=== PATIENT | female | born 1995 | race Two or more races ===

== ENCOUNTER 2025-01-28 21:18 | Emergency (ER) | payer OTHER ==
[~2025-01-28] VITALS: Ht 149.9 cm; Wt 44.5 kg
[2025-01-28 21:23] VITALS: BP 104/66; O2SAT 99
[2025-01-28] MEDS ORDERED: PRENATABS RX T1 EACH (21:23)
[2025-01-28] MEDS ORDERED: FAMOTIDINE/PF 20 MG in 0.9 % SODIUM CHLORIDE 8 ML IV PUSH STA (21:26)
[2025-01-28] MEDS ORDERED: 0.9 % SODIUM CHLORIDE 1,000 ML IV SCH (21:30)
[2025-01-28] MEDS ORDERED: METOCLOPRAMIDE HCL 10 MG in DEXTROSE 5 % IN WATER 50 ML IV ONE (21:30)
[2025-01-28] MEDS ORDERED: BUTALB/ACETAMINOPHEN/CAFFEINE 1 TAB TABLET PO ONE ×2 (21:30→21:57)
[2025-01-28] MEDS ORDERED: FAMOTIDINE/PF 20 MG/2 ML VIAL ONE (21:57)
[2025-01-28] MEDS ORDERED: METOCLOPRAMIDE HCL 5 MG/ML VIAL ONE (21:57)
[2025-01-28] MEDS ORDERED: ONDANSETRON HCL 2 MG/ML VIAL ONE (22:02)
[2025-01-28 23:21] LABS: BASO % 0.2 % (0.1-1.2); EOS # 0.04 (0.04-0.54); EOS % 0.4 % (0.7-7.0); HEMATOCRIT 35.6 % (34.1-44.9); HEMOGLOBIN 12.1 g/dL (11.2-15.7); LYMPH # 1.61 (1.18-3.74); LYMPH % 15.6 % (19.3-53.1); MEAN CORPUSCULAR HEMOGLOBIN 29.2 pg (25.6-32.2); MONO # 0.79 (0.24-0.82); MONO % 7.6 % (4.7-12.5); NEUT # 7.84 (1.56-6.13); NEUT % 75.9 % (34.0-71.1); PLATELET COUNT 305 K/uL (163-369); RED BLOOD COUNT 4.14 M/uL (3.93-5.22)
[2025-01-29] LABS: INFLUENZA A AG NEGATIVE (NEGATIVE)
[2025-01-29 00:04] LABS: COVID-19 AG NEGATIVE (NEGATIVE)
[2025-01-29] MEDS ORDERED: ONDANSETRON ODT8 MG PO (00:12)
[2025-01-29] MEDS ORDERED: PEPCID AC20 MG PO (00:12)
== END 2025-01-29 00:26 | disposition home or self-care (01) ==
LOC: ER 22:52
PROVIDERS: General Practice
DX: O21.0 Mild hyperemesis gravidarum (principal); Z3A.15 15 weeks gestation of pregnancy; Z20.822 Contact with and (suspected) exposure to COVID-19

== ENCOUNTER → 2025-02-14 | Emergency (ER) | payer OTHER ==
[~2025-02-14] VITALS: Ht 167.6 cm; Wt 63.5 kg
[~2025-02-14] MED LIST: GUAIFENESIN 200 MG/10 ML BLIST.PACK PO ONE; GUAIFENESIN/DEXTROMETHORPHAN 100MG/10ML BLIST.PACK PO ONE; ONDANSETRON ODT8 MG PO; PEPCID AC20 MG PO; PRENATABS RX T1 EACH; TUSSIN DM LIQU118 ML PO; ZITHROMAX500 MG PO
[2025-02-14 16:28] LABS: BASO % 0.3 % (0.1-1.2); EOS # 0.08 (0.04-0.54); EOS % 0.5 % (0.7-7.0); HEMATOCRIT 35.3 % (34.1-44.9); LYMPH # 1.03 (1.18-3.74); LYMPH % 6.6 % (19.3-53.1); MEAN CORPUSCULAR HEMOGLOBIN 29.8 pg (25.6-32.2); MONO # 0.84 (0.24-0.82); MONO % 5.4 % (4.7-12.5); NEUT # 13.42 (1.56-6.13); NEUT % 86.7 % (34.0-71.1); PLATELET COUNT 284 K/uL (163-369); RED BLOOD COUNT 4.03 M/uL (3.93-5.22)
[2025-02-14 16:45] LABS: COVID-19 AG NEGATIVE (NEGATIVE); INFLUENZA A AG NEGATIVE (NEGATIVE); INFLUENZA B AG NEGATIVE (NEGATIVE)
== END | disposition home or self-care (01) ==
LOC: ER 11:36
DX: O98.512 Other viral diseases complicating pregnancy, second trimester (principal); B33.8 Other specified viral diseases; Z3A.17 17 weeks gestation of pregnancy; J00 Acute nasopharyngitis [common cold]; Z20.822 Contact with and (suspected) exposure to COVID-19

== ENCOUNTER 2025-02-25 09:19 | Outpatient (CLI) | payer OTHER ==
[~2025-02-25 09:19] MED LIST changes: -GUAIFENESIN 200 MG/10 ML BLIST.PACK PO ONE; -GUAIFENESIN/DEXTROMETHORPHAN 100MG/10ML BLIST.PACK PO ONE
== END 2025-02-25 09:20 | disposition home or self-care (01) ==
LOC: PRENATAL 09:19
PROVIDERS: ATTEND Obstetrics & Gynecology Maternal & Fetal Medicine
DX: O44.00 Complete placenta previa NOS or without hemorrhage, unspecified trimester (principal); Z14.8 Genetic carrier of other disease; O09.819 Supervision of pregnancy resulting from assisted reproductive technology, unspecified trimester; Z3A.18 18 weeks gestation of pregnancy

== ENCOUNTER 2025-03-04 08:38 | Emergency (ER) | payer OTHER ==
[~2025-03-04] VITALS: Ht 149.9 cm; Wt 45.4 kg
[2025-03-04] MEDS ORDERED: COMPLETENATE T1 EACH PO (09:03)
[2025-03-04 09:07] VITALS: O2SAT 97
[2025-03-04 10:02] LABS: BASO % 0.4 % (0.1-1.2); EOS # 0.09 (0.04-0.54); EOS % 1.2 % (0.7-7.0); HEMATOCRIT 31.4 % (34.1-44.9); HEMOGLOBIN 10.6 g/dL (11.2-15.7); LYMPH # 0.85 (1.18-3.74); LYMPH % 11.3 % (19.3-53.1); MEAN CORPUSCULAR HEMOGLOBIN 29.7 pg (25.6-32.2); MONO # 0.71 (0.24-0.82); MONO % 9.4 % (4.7-12.5); NEUT % 77.2 % (34.0-71.1); PLATELET COUNT 281 K/uL (163-369); RED BLOOD COUNT 3.57 M/uL (3.93-5.22); RED CELL DISTRIBUTION WIDTH 13.8 % (11.6-14.4)
[2025-03-04 11:02] LABS: COVID-19 AG NEGATIVE (NEGATIVE)
[2025-03-04 11:06] LABS: INFLUENZA A AG NEGATIVE (NEGATIVE); INFLUENZA B AG NEGATIVE (NEGATIVE)
[2025-03-04 11:21] VITALS: BP 95/60
== END 2025-03-04 11:23 | disposition home or self-care (01) ==
LOC: ER 08:52
DX: J06.9 Acute upper respiratory infection, unspecified (principal); Z20.822 Contact with and (suspected) exposure to COVID-19

== ENCOUNTER 2025-04-29 08:56 | Outpatient (CLI) | payer OTHER ==
[~2025-04-29 08:56] MED LIST changes: +COMPLETENATE T1 EACH PO; +ONDANSETRON ODT4 MG PO; +PEPCID40 MG PO; +ZYRTEC10 M3 PO
== END 2025-04-29 08:58 | disposition home or self-care (01) ==
LOC: PRENATAL 08:56
PROVIDERS: ATTEND Obstetrics & Gynecology Maternal & Fetal Medicine
DX: O26.849 Uterine size-date discrepancy, unspecified trimester (principal); O43.90 Unspecified placental disorder, unspecified trimester; Z14.8 Genetic carrier of other disease; Z3A.27 27 weeks gestation of pregnancy

== ENCOUNTER 2025-05-14 21:29 | Inpatient (IN) | payer OTHER ==
[~2025-05-14] VITALS: Ht 149.9 cm; Wt 47.6 kg
[~2025-05-14 21:29] MED LIST changes: +BETAMETHASONE ACETATE,SOD PHOS 30 MG/5 ML ML ONE; +CEFAZOLIN SODIUM 1,000 MG VIAL ONE
[2025-05-14 21:50] VITALS: BP 102/66
[2025-05-14] MEDS ORDERED: BETAMETHASONE ACETATE,SOD PHOS 30 MG/5 ML ML IM STA (22:20)
[2025-05-14] MEDS ORDERED: RINGERS SOLUTION,LACTATED 1,000 ML IV SCH (22:30)
[2025-05-14] MEDS ORDERED: NIFEDIPINE 10 MG CAPSULE PO PRN (22:30)
[2025-05-14] MEDS ORDERED: PROMETRIUM200 MG PO (22:47)
[2025-05-14 23:07] VITALS: BP 99/52
[2025-05-14 23:17] LABS: BASO % 0.3 % (0.1-1.2); EOS # 0.05 (0.04-0.54); EOS % 0.4 % (0.7-7.0); LYMPH # 1.95 (1.18-3.74); LYMPH % 15.9 % (19.3-53.1); MEAN PLATELET VOLUME 10.10 fl (9.4-12.4); MONO # 0.87 (0.24-0.82); MONO % 7.1 % (4.7-12.5); NEUT # 9.22 (1.56-6.13); NEUT % 75.4 % (34.0-71.1); RED CELL DISTRIBUTION WIDTH 12.6 % (11.6-14.4)
[2025-05-14 23:20] LABS: URINE APPEARANCE Clear; URINE BILIRRUBIN Negative (NEGATIVE); URINE BLOOD Negative; URINE COLOR Dark Yellow; URINE GLUCOSE Negative (NEGATIVE); URINE LEUKOCYTE Small; URINE NITRATE Negative; URINE PROTEIN 30 (NEGATIVE); URINE UROBILINOGEN 1.0 E.U./dl
[2025-05-14 23:23] LABS: URINE BACTERIA 1276.8 uL (0.0-1933); URINE EPITHELIAL CELLS 88.7 uL (0.0-38.8); URINE RBC 5.5 uL (0.0-20.8); URINE WBC 88.4 uL (0.0-23.2)
[2025-05-14 23:41] LABS: INR 0.94
[2025-05-14 23:48] LABS: URINE CAST 0.43 uL (0.0-1.40); URINE KETONE 80 (NEGATIVE); URINE MUCUS HEAVY
[2025-05-15] VITALS (7 sets, daily range): BP systolic 91–103; BP diastolic 52–68; O2SAT 98–100
[2025-05-15] MEDS ORDERED: CEFAZOLIN SODIUM 1,000 MG VIAL IV SCH
[2025-05-15] MEDS ORDERED: NIFEDIPINE 30 MG TAB.SA.OSM PO SCH (06:19)
[2025-05-15] MEDS ORDERED: PNV,CALCIUM 72/IRON/FOLIC ACID 1 TAB TABLET PO SCH (09:00)
[2025-05-15] MEDS ORDERED: MAGNESIUM SULFATE IN WATER 4 GM/100 ML PIGGYBACK IV ONE (09:00)
[2025-05-15] MEDS ORDERED: MAGNESIUM SULFATE IN WATER 500 ML IV SCH (09:00)
[2025-05-15] MEDS ORDERED: SOD FERRIC GLUC COMPLX/SUCROSE 62.5 MG/5 ML AMPUL IV SCH (09:00)
[2025-05-15] MEDS ORDERED: BETAMETHASONE ACETATE,SOD PHOS 30 MG/5 ML ML ONE (22:09)
[2025-05-15] MEDS ORDERED: BETAMETHASONE ACETATE,SOD PHOS 30 MG/5 ML ML IM ONE (22:30)
[2025-05-16 03:30] VITALS: BP 91/50
[2025-05-16 07:06] VITALS: BP 94/45
[2025-05-16 11:22] VITALS: BP 106/65
[2025-05-16 16:32] VITALS: BP 92/58; O2SAT 99
[2025-05-16 21:11] VITALS: BP 97/60
[2025-05-16 21:14] VITALS: BP 97/60
[2025-05-17 00:27] VITALS: BP 95/50
[2025-05-17 08:36] VITALS: BP 104/64
[2025-05-17 16:18] VITALS: BP 101/64; O2SAT 98
[2025-05-18 00:16] VITALS: BP 100/58
[2025-05-18 08:08] VITALS: BP 93/58
[2025-05-18] MEDS ORDERED: MISOPROSTOL 25 MCG/4 ML GEL.W.APPL VAG STA (08:20)
[2025-05-18 16:35] VITALS: BP 107/67
[2025-05-19] VITALS: BP 92/53
[2025-05-19] MEDS ORDERED: CITRIC ACID/SODIUM CITRATE 30 ML BLIST.PACK PO NR (07:00)
[2025-05-19 08:33] VITALS: BP 111/68; O2SAT 99
[2025-05-19 12:23] VITALS: BP 120/61; O2SAT 99
[2025-05-19] MEDS ORDERED: MAG HYDROX/ALUMINUM HYD/SIMETH 30 ML BLIST.PACK PO NR (17:00)
[2025-05-19 17:10] VITALS: BP 101/64
[2025-05-19 20:22] VITALS: BP 103/62
[2025-05-20] VITALS: BP 107/65
[2025-05-20 08:14] VITALS: BP 105/64
[2025-05-20 13:47] LABS: BASO % 0.3 % (0.1-1.2); EOS # 0.20 (0.04-0.54); EOS % 1.4 % (0.7-7.0); LYMPH # 1.61 (1.18-3.74); LYMPH % 11.1 % (19.3-53.1); MEAN PLATELET VOLUME 10.20 fl (9.4-12.4); MONO # 0.94 (0.24-0.82); MONO % 6.5 % (4.7-12.5); NEUT # 11.12 (1.56-6.13); NEUT % 76.5 % (34.0-71.1); RED CELL DISTRIBUTION WIDTH 13.3 % (11.6-14.4)
[2025-05-20 19:20] VITALS: BP 106/55
[2025-05-21 00:36] VITALS: BP 102/65
[2025-05-21 08:54] VITALS: BP 100/64
[2025-05-21 17:33] VITALS: BP 100/65
[2025-05-21 20:18] VITALS: BP 120/70
[2025-05-22 08:00] VITALS: BP 103/62
[2025-05-22 12:00] VITALS: BP 100/65
[2025-05-22 16:46] VITALS: BP 95/55
[2025-05-23] VITALS: BP 108/72
[2025-05-23 08:00] VITALS: BP 96/50
[2025-05-23 16:00] VITALS: BP 102/66
[2025-05-23 20:00] VITALS: BP 106/65
[2025-05-24] VITALS: BP 96/52
[2025-05-24 04:00] VITALS: BP 95/60
[2025-05-24 08:00] VITALS: BP 99/62
[2025-05-24 16:44] VITALS: BP 112/76
[2025-05-25] VITALS: BP 102/76
[2025-05-25 04:00] VITALS: BP 97/60
[2025-05-25 07:55] VITALS: BP 96/60
[2025-05-25 13:02] VITALS: BP 100/62
[2025-05-25 15:50] VITALS: BP 101/66
[2025-05-26] VITALS: BP 106/69
[2025-05-26 08:04] VITALS: BP 95/62
== END 2025-05-26 10:02 | disposition home or self-care (01) | DRG 833 ==
LOC: LDR 21:29 → OB/GYN 05-16 10:28
PROVIDERS: Obstetrics & Gynecology Maternal & Fetal Medicine; ADMIT Obstetrics & Gynecology; ATTEND Obstetrics & Gynecology
PROC: 4A1HXCZ Monitoring of Products of Conception, Cardiac Rate, External Approach (ICD-10-PCS; principal; 2025-05-14)
PROC: BY4FZZZ Ultrasonography of Third Trimester, Single Fetus (ICD-10-PCS; 2025-05-15)
PROC: BU4CZZZ Ultrasonography of Uterus and Ovaries (ICD-10-PCS; 2025-05-15)
PROC: BY4FZZZ Ultrasonography of Third Trimester, Single Fetus (ICD-10-PCS; 2025-05-25)
PROC: BU4CZZZ Ultrasonography of Uterus and Ovaries (ICD-10-PCS; 2025-05-25)
DX: O60.03 Preterm labor without delivery, third trimester (principal); O26.893 Other specified pregnancy related conditions, third trimester; R10.2 Pelvic and perineal pain; O36.8130 Decreased fetal movements, third trimester, not applicable or unspecified; O26.843 Uterine size-date discrepancy, third trimester; O43.93 Unspecified placental disorder, third trimester; O26.853 Spotting complicating pregnancy, third trimester; Z3A.30 30 weeks gestation of pregnancy; Z14.8 Genetic carrier of other disease

== ENCOUNTER → 2025-06-08 10:32 | Outpatient (CLI) | payer OTHER ==
[~2025-06-08 10:32] MED LIST changes: -BETAMETHASONE ACETATE,SOD PHOS 30 MG/5 ML ML ONE; -CEFAZOLIN SODIUM 1,000 MG VIAL ONE; +PROMETRIUM200 MG PO
== END | disposition home or self-care (01) ==
LOC: PRENATAL 10:32
PROVIDERS: ATTEND Obstetrics & Gynecology Maternal & Fetal Medicine
DX: O26.849 Uterine size-date discrepancy, unspecified trimester (principal); O36.8130 Decreased fetal movements, third trimester, not applicable or unspecified; O43.90 Unspecified placental disorder, unspecified trimester; Z14.8 Genetic carrier of other disease; Z3A.33 33 weeks gestation of pregnancy

== ENCOUNTER → 2025-07-01 09:34 | Outpatient (CLI) | payer OTHER | END | disposition home or self-care (01) | LOC: PRENATAL 09:34 | PROVIDERS: ATTEND Obstetrics & Gynecology Maternal & Fetal Medicine | DX: O26.849 Uterine size-date discrepancy, unspecified trimester (principal); O36.8130 Decreased fetal movements, third trimester, not applicable or unspecified; O36.5990 Maternal care for other known or suspected poor fetal growth, unspecified trimester, not applicable or unspecified; O43.90 Unspecified placental disorder, unspecified trimester; Z14.8 Genetic carrier of other disease; O99.019 Anemia complicating pregnancy, unspecified trimester; Z3A.35 35 weeks gestation of pregnancy ==

== ENCOUNTER 2025-07-08 07:46 | Inpatient (IN) | payer OTHER ==
[2025-07-08] VITALS (7 sets, daily range): BP systolic 105–118; BP diastolic 61–74
[~2025-07-08] VITALS: Ht 149.9 cm; Wt 49.0 kg
[2025-07-08 09:06] LABS: URINE APPEARANCE Clear; URINE BILIRRUBIN Negative (NEGATIVE); URINE BLOOD Moderate; URINE COLOR Yellow; URINE GLUCOSE Negative (NEGATIVE); URINE KETONE Negative (NEGATIVE); URINE LEUKOCYTE Small; URINE NITRATE Negative; URINE PROTEIN Negative (NEGATIVE); URINE UROBILINOGEN 1.0 E.U./dl
[2025-07-08 09:10] LABS: URINE BACTERIA 460.7 uL (0.0-1933); URINE EPITHELIAL CELLS 36.2 uL (0.0-38.8); URINE RBC 5.7 uL (0.0-20.8); URINE WBC 32.1 uL (0.0-23.2)
[2025-07-08 09:26] LABS: URINE CAST 0.00 uL (0.0-1.40)
[2025-07-08 09:29] LABS: INR < 0.93
[2025-07-08 09:33] LABS: BASO % 0.3 % (0.1-1.2); EOS # 0.02 (0.04-0.54); EOS % 0.2 % (0.7-7.0); LYMPH # 1.27 (1.18-3.74); LYMPH % 11.4 % (19.3-53.1); MEAN PLATELET VOLUME 10.80 fl (9.4-12.4); MONO # 0.66 (0.24-0.82); MONO % 5.9 % (4.7-12.5); NEUT # 8.99 (1.56-6.13); NEUT % 81.0 % (34.0-71.1)
[2025-07-08 09:35] LABS: RED CELL DISTRIBUTION WIDTH 16.4 % (11.6-14.4)
[2025-07-08] MEDS ORDERED: RINGERS SOLUTION,LACTATED 1,000 ML IV SCH (10:15)
[2025-07-08] MEDS ORDERED: OXYTOCIN 20 UNITS/500ML RL PIGGYBAG IV SCH ×2 (14:00→15:45)
[2025-07-08] MEDS ORDERED: OXYTOCIN 1,000 ML IV SCH (18:15)
[2025-07-08] MEDS ORDERED: ACETAMINOPHEN 500 MG GEL..CAP PO PRN (18:15)
[2025-07-08] MEDS ORDERED: CHLORHEXIDINE GLUCONATE 120 ML BOTTLE TP SCH (18:15)
[2025-07-08 21:00] LABS: BASO % 0.2 % (0.1-1.2); EOS # 0.00 (0.04-0.54); EOS % 0.0 % (0.7-7.0); LYMPH # 1.03 (1.18-3.74); LYMPH % 5.5 % (19.3-53.1); MEAN PLATELET VOLUME 10.50 fl (9.4-12.4); MONO # 1.09 (0.24-0.82); MONO % 5.8 % (4.7-12.5); NEUT # 16.53 (1.56-6.13); NEUT % 88.0 % (34.0-71.1); RED CELL DISTRIBUTION WIDTH 16.2 % (11.6-14.4)
[2025-07-09 03:13] VITALS: BP 107/71
[2025-07-09] MEDS ORDERED: PNV,CALCIUM 72/IRON/FOLIC ACID 1 TAB TABLET PO SCH (09:00)
[2025-07-09 09:20] VITALS: BP 116/80
[2025-07-09 16:57] VITALS: BP 105/70
[2025-07-10 02:50] VITALS: BP 106/69
[2025-07-10 08:00] VITALS: BP 99/64
[2025-07-10] MEDS ORDERED: PRENATAL VITAM1 EAC6 PO (14:47)
[2025-07-10 15:54] VITALS: BP 105/71
== END 2025-07-10 16:55 | disposition home or self-care (01) | DRG 807 ==
LOC: LDR 07:46 → OB/GYN 07:46 → LDR 09:55 → OB/GYN 18:56
PROVIDERS: ADMIT Obstetrics & Gynecology; ATTEND Obstetrics & Gynecology
PROC: 10E0XZZ Delivery of Products of Conception, External Approach (ICD-10-PCS; principal; 2025-07-08)
PROC: 4A1HXCZ Monitoring of Products of Conception, Cardiac Rate, External Approach (ICD-10-PCS; 2025-07-08)
DX: O80 Encounter for full-term uncomplicated delivery (principal); Z37.0 Single live birth; Z3A.38 38 weeks gestation of pregnancy